=== PATIENT | female | born 1955 | race Caucasian/White ===

== ENCOUNTER 2016-10-20 17:56 | Emergency (ER) ==
[2016-10-20] MEDS ORDERED: LIDOCAINE 1 % AMP 5 ML (SUTURES) ONE (18:06)
[2016-10-20] MEDS ORDERED: LIDOCAINE 1 % AMP 5 ML (SUTURES) SUBCUT STA (18:07)
--- NOTE | 2016-10-20 18:14 | ED.PDOC ---
General ED Provider: Dr. TRISTA BARRY Chief Complaint: Non-specific Complaint Stated Complaint: milena hernadez Time Seen by Physician: 18:00 (seen with akash at all times ) Mode of Arrival: Walk-In Information Source: Patient Exam Limitations: No limitations (fish tan in right tigh laterally) Nursing and Triage Documentation Reviewed and Agree: Yes Skin Complaint Exam - Skin/Soft Tissue Complaint/Exam Symptoms Are: Still present Timing: Constant Initial Severity: Mild Current Severity: Mild Character: Denies: Redness, Swelling, Raised, Painful Aggravating: Reports: None Alleviating: Reports: None Associated Signs and Symptoms: Denies: Fever, Chills, Itching, Drainage, Bruising, Tenderness, Red streaks, Joint swelling Review of Systems - Review Of Systems Constitutional: Reports: No symptoms Eyes: Reports: No symptoms Ears, Nose, Mouth, Throat: Reports: No symptoms Respiratory: Reports: No symptoms Cardiac: Reports: No symptoms GI: Reports: No symptoms : Reports: No symptoms Musculoskeletal: Reports: No symptoms Skin: Reports: Other (f/b fish tan right tigh) Neurological: Reports: No symptoms Endocrine: Reports: No symptoms Hematologic/Lymphatic: Reports: No symptoms All Other Systems: Reviewed and Negative Past Medical History - Past Medical History Previously Healthy: Yes Endocrine: Reports: None Cardiovascular: Reports: None Respiratory: Reports: None Hematological: Reports: None Gastrointestinal: Reports: None Genitourinary: Reports: None Neuro/Psych: Reports: None Musculoskeletal: Reports: None Cancer: Reports: None Last Menstrual Period: NO LONGER HAS PERIOD - Surgical History General Surgical History: Reports: None - Family History Family History: Reports: None - Social History Smoking Status: Never smoker Hx Substance Use: No Alcohol Screening: Occasionally - Immunizations Tetanus Shot up to Date: No Physical Exam - Physical Exam Appearance: Well-appearing, No pain distress, Well-nourished Eyes: JONATHAN, EOMI, Conjunctiva clear ENT: Ears normal, Nose normal, Oropharynx normal Respiratory: Airway patent, Breath sounds clear, Breath sounds equal, Respirations nonlabored Cardiovascular: RRR, Pulses normal, No rub, No murmur GI/: Soft, Nontender, No masses, Bowel sounds normal, No Organomegaly Musculoskeletal: Normal strength, ROM intact, No edema, No calf tenderness Skin: Warm, Dry (embeded fish tan rig tigh ) Neurological: Sensation intact, Motor intact, Reflexes intact, Cranial nerves intact, Alert, Oriented Psychiatric: Affect appropriate, Mood appropriate Procedures - Foreign Body Removal Location of Foreign Object: right tigh fish hook Foreign Object: see above Depth of Object: 4mm Type of Anesthesia: Local Medication Used: Yes: Lidocaine. No: Lidocaine with Epi Prep: Betadine Irrigation: No Skin Incised: No Instruments Used: Yes: Manual, Forceps Foreign Body Identified and Removed: Yes (fish hook entirely removed doris examined ) Critical Care Note - Critical Care Note Total Time (mins): 0 Course - Course Orders, Labs, Meds: Orders Category Date Time Status Lidocaine HCl/Pf [Lidocaine 1 % Amp 5 ml (Sutures)] MEDS 10/20/16 18:06 Discontinued 5 ml .ROUTE .STK-MED ONE Lidocaine HCl/Pf [Lidocaine 1 % Amp 5 ml (Sutures)] MEDS 10/20/16 18:07 Stat 5 ml SUBCUT ONCE STA Medications Discontinued Medications Generic Name Dose Route Start Last Admin Trade Name Freq PRN Reason Stop Dose Admin Lidocaine HCl 5 ml 10/20/16 18:07 Lidocaine 1 % Amp 5 Ml (Sutures) SUBCUT 10/20/16 18:08 ONCE STA Vital Signs: Temp Pulse Resp BP Pulse Ox 10/20/16 17:57 97.2 F L 109 H 20 177/93 H 96 Departure - Departure Time of Disposition: 18:14 (pt had cut out the barbs which was not in the wound. 1 doris was in the wound and was removed) Disposition: HOME SELF-CARE Discharge Problem: Fish hook injury of right lower leg Qualifiers: Encounter type: initial encounter Qualifier Code: (S89.91XA) Unspecified injury of right lower leg, initial encounter Instructions: Puncture Wound (ED) Condition: Good Pt referred to PMD for follow-up: Yes Additional Instructions: Please call your Family Physician as soon as possible to schedule a follow-up appointment. Allergies/Adverse Reactions: Allergies nabumetone [From Relafen] Adverse Reaction (Verified 10/20/16 18:02) Home Medications: Ambulatory Orders Pantoprazole Sodium [Protonix] 40 mg PO BID 10/20/16
[2016-10-20 18:17] VITALS: BP 177/93; TEMP 97.2; BMI 32.3
== END 2016-10-20 18:23 | disposition home or self-care (01) ==
LOC: ED 17:56
DX: S71.141A Puncture wound with foreign body, right thigh, initial encounter (principal); W45.8XXA Other foreign body or object entering through skin, initial encounter
CPT/HCPCS: 99283